=== PATIENT | female | born 1965 | race Caucasian/White ===

== ENCOUNTER → 2017-10-10 | Outpatient (CLI) | payer OTHER ==
--- NOTE | 2017-10-10 13:37 | DIAGNOSTIC IMAGING REPORT ---
CHEST 2 VIEWS ROUTINE CLINICAL HISTORY: R07.89 Chest [id number] COMPARISON STUDY: No previous studies for comparison. FINDINGS: The heart is normal in size. There is a thoracolumbar scoliosis. There is no focal pulmonary consolidation. There are no pleural effusions. There is subtle right apical nodularity including a [address] scanning should be considered in follow-up, to exclude a true apical mass. There is no failure. IMPRESSION: 1. Nonspecific oval right apical nodularity. CT scanning should be considered in follow-up. Electronically signed by: Jac Allan M.D. 10/10/2017 1:35 PM Dictated Date/Time: 10/10/2017 1:33 PM
== END | disposition home or self-care (01) ==
LOC: C.RAD 13:15
PROVIDERS: ATTEND Family Medicine
DX: R22.2 Localized swelling, mass and lump, trunk (principal); R07.89 Other chest pain